=== PATIENT | male | born 1975 | race Caucasian/White ===

== ENCOUNTER → 2020-05-17 | Outpatient (CLI) | payer OTHER | LOC: M.LAB 07:38 | PROVIDERS: ATTEND Internal Medicine Gastroenterology | DX: Z01.812 Encounter for preprocedural laboratory examination (principal); Z20.822 Contact with and (suspected) exposure to COVID-19; R19.5 Other fecal abnormalities ==

== ENCOUNTER 2020-08-18 12:36 | Emergency (ER) | payer OTHER ==
[~2020-08-18] VITALS: Ht 172.7 cm; Wt 81.7 kg
[2020-08-18] MEDS ORDERED: LIPITOR40 MG PO (12:48)
[2020-08-18] MEDS ORDERED: KEPPRA 500 MG500 M1 PO (12:48)
[2020-08-18 13:11] LABS: HEMATOCRIT 47.5 % (42.0-52.0); HEMOGLOBIN 16.2 gm/dL (14.0-18.0); MCH 31.6 pg (26.0-34.0); MCHC 34.1 g/dL (28.0-37.0); MCV 92.7 fL (80.0-100.0); MPV 7.5 fl. (7.2-11.1); NUCLEATED RBCS 0 /100WBC; PLATELET COUNT* 339 thou/uL (150-400); RBC 5.13 mil/uL (4.50-6.00); WBC 17.9 thou/uL (4.0-11.0)
[2020-08-18 13:23] LABS: APTT 22.8 Seconds (25.0-31.3); PROTIME 10.3 Seconds (9.20-11.50)
[2020-08-18 13:25] LABS: CALCIUM 9.9 mg/dL (8.5-10.1); CREATININE 1.1 mg/dL (0.6-1.3); POTASSIUM 3.8 mmol/L (3.5-5.1)
[2020-08-18 13:30] LABS: ALBUMIN 4.9 g/dL (3.4-5.0); TOTAL BILIRUBIN 1.1 mg/dL (<0.1-1.0); TOTAL PROTEIN 8.2 g/dL (6.4-8.2)
[2020-08-18 13:34] LABS: ABSOLUTE LYMPHOCYTES 1.3 thou/uL (0.8-5.3); ABSOLUTE NEUTROPHILS 16.6 thou/uL (1.6-8.1); PLATELET ESTIMATE ADEQUATE
[2020-08-18 14:01] LABS: URINE BILIRUBIN NEGATIVE (Negative); URINE BLOOD NEGATIVE (Negative); URINE CLARITY CLEAR; URINE COLOR YELLOW; URINE GLUCOSE-RANDOM NEGATIVE (Negative); URINE KETONES TRACE (Negative); URINE LEUKOCYTES NEGATIVE (Negative); URINE NITRITE NEGATIVE (Negative); URINE PROTEIN 1+ (Negative); URINE SPECIFIC GRAVITY 1.025 (1.005-1.030); URINE UROBILINOGEN 0.2 E.U./dl (0.2-1.0)
[2020-08-18 14:07] LABS: BACTERIA 1-9 Few /HPF (None Seen); CASTS None Seen /LPF (None Seen); CRYSTALS None Seen /LPF (None Seen); SQUAMOUS 0-3 Few /LPF (0-3); URINE RBC 0-2 Rare /HPF (0-2); URINE WBC 0-5 Rare /HPF (0-5)
[2020-08-18 14:08] LABS: AMP/METHAMP Negative (Negative); BARBITURATES Negative (Negative); BENZODIAZEPINES Negative (Negative); COCAINE Negative (Negative); METHADONE Negative (Negative); OPIATES Negative (Negative); PCP Negative (Negative); THC POSITIVE (Negative)
[2020-08-18 16:04] VITALS: BP 125/70
--- NOTE | 2020-08-19 13:55 | EKG ---
[place] [address] ELECTROCARDIOGRAM REPORT Name: BETTINA CAIN JR Room: [facility] ([place], [place])#: [id number] Admission: 08/18/20 Attend Phys: Discharge: 08/18/20 Date of : 71 Date of Service: 08/18/20 1317 Report #: [id number] THIS REPORT FOR: //name// [facility] ED Test Date: 2020-08-18 Test Time: 13:17:45 Pat Name: BETTINA CAIN Department: Room: Gender: [employer]: [facility] : 1975 Requested By: Annie Leal Order Number: [id number] : Erick Arita Measurements Intervals [place] Rate: 72 P: 47 [place]: 156 QRS: 45 QRSD: 90 T: 38 QT: 397 QTc: 435 Interpretive Statements Sinus arrhythmia ST elev, probable normal early repol pattern No previous ECG available for comparison Electronically Signed On 08-19-2020 13:55:08 CDT by Erick Arita [email or web address] <ELECTRONICALLY SIGNED> By: Erick Arita MD, [facility] 08/19/20 1355 1317 131 Erick Arita MD, FAC /EPI
== END 2020-08-18 16:05 | disposition home or self-care (01) ==
LOC: M.ERS 12:36
PROVIDERS: Physician Assistant
DX: R11.15 Cyclical vomiting syndrome unrelated to migraine (principal); F12.90 Cannabis use, unspecified, uncomplicated; I10 Essential (primary) hypertension; F17.210 Nicotine dependence, cigarettes, uncomplicated; Z79.899 Other long term (current) drug therapy